=== PATIENT | female | born 1965 | race African-American/Black ===

== ENCOUNTER 2017-11-30 13:09 | Inpatient (IN) | payer BC, OTHER ==
[~2017-11-30] VITALS: Ht 172.7 cm; Wt 111.6 kg
[2017-11-30] MEDS ORDERED: NITROGLYCERIN OINT 1GM/INCH UDPKT TD STA (13:32)
[2017-11-30] MEDS ORDERED: ONDANSETRON HCL 4MG/2ML VIAL IV STA (13:32)
[2017-11-30] MEDS ORDERED: MORPHINE SULFATE 4 MG/ML CPJ (NOT FOR IM USE) IV STA (13:32)
[2017-11-30] MEDS ORDERED: NITROGLYCERIN 0.4MG TABLET SL SL PRN (13:45)
[2017-11-30 14:06] LABS: BASOPHILS % 0.7 % (0.0-2.0); EOSINOPHILS % 2.4 % (0.0-5.0); HEMATOCRIT. 40.8 % (36.0-48.0); HEMOGLOBIN. 12.8 g/dL (12.0-16.0); LYMPHOCYTES % 20.7 % (20.0-50.0); MEAN CORPUSCULAR HEMOGLOBIN 24.7 pg (28.0-32.0); MEAN CORPUSCULAR VOLUME 78.6 fL (81.0-99.0); MEAN PLATELET VOLUME 10.2 fl (7.4-10.4); MONOCYTES % 6.3 % (2.0-8.0); NEUTROPHILS % 69.9 % (40.0-76.0); PLATELET 229 x1000/uL (130-400); RED BLOOD CELL COUNT 5.19 mill/uL (4.2-5.4); RED CELL DISTRIBUTION WIDTH 16.2 % (11.6-14.6)
[2017-11-30 14:15] LABS: INR 1.1; PARTIAL THROMBOPLASTIN TIME 28.5 sec (23.4-31.0); PROTHROMBIN TIME 11.4 sec (9.4-11.6)
[2017-11-30 14:24] LABS: CARBON DIOXIDE 29 mEq/L (21-32); CHLORIDE 104 mEq/L (98-107); CREATINE KINASE 217 IU/L (26-192); TROPONIN I < 0.02 ng/mL (0.00-0.04)
[2017-11-30 14:28] LABS: CREATINE KINASE MB FRACTION 2.1 ng/mL (0.5-3.6)
[2017-11-30] MEDS ORDERED: DEXTROSE 50% WATER 50ML SYRINGE IV PRN (16:45)
[2017-11-30 16:58] VITALS: BP 138/76
[2017-11-30 17:01] VITALS: BP 138/76
[2017-11-30] MEDS ORDERED: NAPR-681 PO (17:15)
[2017-11-30] MEDS ORDERED: METF500T4 PO (17:15)
[2017-11-30] MEDS ORDERED: METH-375 PO (17:15)
[2017-11-30] MEDS ORDERED: LISI10TA5 PO (17:15)
[2017-11-30] MEDS ORDERED: ATOR20TA65 PO (17:15)
[2017-11-30] MEDS ORDERED: ACETAMINOPHEN 325MG TABLET PO PRN (17:30)
[2017-11-30] MEDS ORDERED: ENOXAPARIN 40MG/0.4ML SYR SUBCUT SCH (17:30)
[2017-11-30] MEDS ORDERED: NA PHOS,M-B/NA PHOS,DI-BA ENEMA 118ML PR PRN (17:30)
[2017-11-30] MEDS ORDERED: LORAZEPAM 2MG/ML CPJ IV PRN (17:30)
[2017-11-30] MEDS: INSULIN LISPRO 100 UNITS/ML SUBCUT SCH ×2 (17:50→21:42)
[2017-11-30] MEDS ORDERED: INSULIN LISPRO 100 UNITS/ML SUBCUT SCH (17:50)
[2017-11-30] MEDS: BLOOD SUGAR DIAGNOSTIC STRIP TEST SCH ×3 (17:57→21:22)
[2017-11-30] MEDS: METFORMIN HCL 500MG TABLET PO SCH (17:57)
[2017-11-30] MEDS: ENOXAPARIN 30MG/0.3ML SYR SUBCUT SCH (17:59)
[2017-11-30] MEDS ORDERED: MAGNESIUM/ALUMINUM HYDROXIDE/SIMETHICONE 30ML UDC PO PRN (18:00)
[2017-11-30] MEDS ORDERED: IPRATROPIUM/ALBUTEROL 0.5-3(2.5)MG/3ML NEB INH PRN (18:00)
[2017-11-30] MEDS ORDERED: NAPROXEN 500MG TABLET PO PRN (18:00)
[2017-11-30] MEDS ORDERED: DOCUSATE SODIUM 100MG CAPSULE PO PRN (18:00)
[2017-11-30] MEDS ORDERED: ONDANSETRON HCL 4MG/2ML VIAL IV PRN (18:00)
[2017-11-30] MEDS ORDERED: DIPHENHYDRAMINE 50MG/ML VIAL IV PRN (18:00)
[2017-11-30] MEDS ORDERED: GUAIFENESIN 200MG/10ML SUGAR FREE UDC PO PRN (18:00)
[2017-11-30] MEDS ORDERED: MORPHINE SULFATE 2 MG/ML CPJ (NOT FOR IM USE) IV PRN (18:00)
[2017-11-30] MEDS ORDERED: CLONIDINE 0.1MG TABLET PO PRN (18:00)
[2017-11-30 20:00] VITALS: BP 136/80
[2017-11-30] MEDS ORDERED: ATORVASTATIN CALCIUM 20MG TABLET PO SCH (21:00)
[2017-11-30] MEDS ORDERED: MAGNESIUM 1 G PREMIX 100 ML IV NR (21:00)
[2017-11-30] MEDS ORDERED: POTASSIUM CHLORIDE 20MEQ TABLET SR PO NR (21:00)
[2017-11-30] MEDS ORDERED: METHOCARBAMOL 750MG TABLET PO SCH (21:00)
[2017-11-30] MEDS: HYDROCODONE/APAP 7.5/325MG 1 TAB TABLET PO PRN (21:21)
[2017-11-30 23:10] LABS: CARBON DIOXIDE 29 mEq/L (21-32); CHLORIDE 99 mEq/L (98-107)
[2017-11-30 23:17] LABS: TROPONIN I < 0.02 ng/mL (0.00-0.04)
[2017-12-01] VITALS: BP 133/60
[2017-12-01 04:00] VITALS: BP 146/79
[2017-12-01] MEDS: BLOOD SUGAR DIAGNOSTIC STRIP TEST SCH ×2 (06:31→13:07)
[2017-12-01] MEDS: ENOXAPARIN 30MG/0.3ML SYR SUBCUT SCH (06:31)
[2017-12-01 06:54] LABS: BASOPHILS % 0.8 % (0.0-2.0); LYMPHOCYTES % 15.4 % (20.0-50.0); MEAN CORPUSCULAR HEMOGLOBIN 25.1 pg (28.0-32.0); MEAN CORPUSCULAR VOLUME 79.5 fL (81.0-99.0); MEAN PLATELET VOLUME 10.9 fl (7.4-10.4); MONOCYTES % 5.8 % (2.0-8.0); PLATELET 209 x1000/uL (130-400); RED BLOOD CELL COUNT 4.78 mill/uL (4.2-5.4)
[2017-12-01 07:10] LABS: CHLORIDE 101 mEq/L (98-107)
[2017-12-01 07:44] LABS: CARBON DIOXIDE 29 mEq/L (21-32); HDL CHOLESTEROL 34 mg/dL (40-59); LDL CHOLESTEROL 46 mg/dL (5-100); T4 FREE 0.95 ng/dL (0.76-1.46); TROPONIN I < 0.02 ng/mL (0.00-0.04)
[2017-12-01 07:58] VITALS: BP 160/86
[2017-12-01] MEDS ORDERED: ASPIRIN 81MG EC TABLET PO SCH (09:00)
[2017-12-01] MEDS ORDERED: LISINOPRIL 10MG TABLET PO SCH (09:00)
[2017-12-01] MEDS ORDERED: REGADENOSON 0.4 MG/5 ML IV ONE ×3 (09:15→10:52)
[2017-12-01] MEDS ORDERED: CARVEDILOL 3.125 MG TABLET PO SCH (10:00)
[2017-12-01 12:30] VITALS: BP 184/94
[2017-12-01 13:01] VITALS: BP 184/94
[2017-12-01] MEDS: HYDROCODONE/APAP 7.5/325MG 1 TAB TABLET PO PRN (13:01)
[2017-12-01] MEDS: METFORMIN HCL 500MG TABLET PO SCH (13:02)
[2017-12-01] MEDS: INSULIN LISPRO 100 UNITS/ML SUBCUT SCH ×2 (13:07→13:12)
[2017-12-01] MEDS ORDERED: SODIUM CHLORIDE 0.9% 10ML VIAL ONE (14:26)
[2017-12-01 16:48] LABS: CREATINE KINASE 188 IU/L (26-192); CREATINE KINASE MB FRACTION 1.5 ng/mL (0.5-3.6); HDL CHOLESTEROL 35 mg/dL (40-59); LDL CHOLESTEROL 50 mg/dL (5-100); T4 FREE 0.97 ng/dL (0.76-1.46); TROPONIN I < 0.02 ng/mL (0.00-0.04)
[2017-12-02] MEDS ORDERED: ASPIRIN 81MG TABLET PO SCH (09:00)
== END 2017-12-01 15:30 | disposition home or self-care (01) | DRG 392 ==
LOC: ER 13:09 → 6WST 14:42 → EDBEDREQ 14:44 → ENRESERV 15:29 → CANRESERV 15:29 → ENRESERV 16:09
PROVIDERS: ADMIT Internal Medicine; ATTEND Internal Medicine
DX: K21.9 Gastro-esophageal reflux disease without esophagitis (principal); E11.9 Type 2 diabetes mellitus without complications; E78.5 Hyperlipidemia, unspecified; E66.9 Obesity, unspecified; G47.33 Obstructive sleep apnea (adult) (pediatric); I10 Essential (primary) hypertension; Z79.84 Long term (current) use of oral hypoglycemic drugs; Z79.899 Other long term (current) drug therapy; Z68.37 Body mass index [BMI] 37.0-37.9, adult
CPT/HCPCS: 36415; 71045; 78452; 80048; 80053; 80061; 82550; 82553; 82962; 83036; 83690; 83880; 84439; 84443; 84484; 85025; 85379; 85610; 85730; 93005; 93017; 93306; 93970; 96374; 96375; 99291; A4216; A9500; J1650; J1815; J2270; J2405; J2785; J3475

== ENCOUNTER 2021-09-10 17:27 | Emergency (ER) | payer BC, OTHER ==
[~2021-09-10] VITALS: Ht 172.7 cm; Wt 90.0 kg
[~2021-09-10 17:27] MED LIST: ATOR20TA65 PO; LISI10TA26 PO; METF-414 PO; METH-375 PO; NAPR-681 PO
[2021-09-10 17:41] VITALS: BP 142/68
== END 2021-09-10 23:53 | disposition left against medical advice (07) ==
LOC: ER 17:27
DX: Z53.21 Procedure and treatment not carried out due to patient leaving prior to being seen by health care provider (principal)
CPT/HCPCS: 93005